=== PATIENT | male | born 1960 | race Caucasian/White ===

== ENCOUNTER 2019-03-25 07:23 | Day surgery (SDC) | payer OTHER, BC ==
[2019-03-25 08:06] VITALS: BMI 25.3
[2019-03-25] MEDS ORDERED: MIDAZOLAM HCL 2 MG/2 ML SINGLE DOSE VIAL ONE (08:52)
[2019-03-25] MEDS ORDERED: ROPIVACAINE HCL 0.5% 30ML VIAL ONE (08:53)
[2019-03-25] MEDS ORDERED: DEXAMETHASONE SOD PHOSPHATE 4 MG/1 ML VIAL ONE ×2 (09:46→11:17)
[2019-03-25] MEDS ORDERED: ONDANSETRON 4 MG/2 ML VIAL ONE ×2 (09:46→11:17)
[2019-03-25] MEDS ORDERED: PROPOFOL 20 ML ONE ×5 (09:48→10:57)
[2019-03-25] MEDS ORDERED: SUCCINYLCHOLINE CHLORIDE 200 MG/10 ML VIAL ONE (09:51)
[2019-03-25] MEDS ORDERED: LIDOCAINE HCL 2% JELLY (5 ML/TUBE) ONE (10:04)
--- NOTE | 2019-03-25 11:43 | OP ---
Operative Note - Note: Operative Date: 03/25/19 Pre-Operative Diagnosis: right quad tendon rupture Operation: right quad tendon repair Implants: qfix x2, 1 discarded Post-Operative Diagnosis: Same as Pre-op Surgeon: Dionisio Mills Conventions Reservationist: Sergio Dunlap Anesthesiologist/FINANCIAL SERVICES REPRESENTATIVE: Sergio Fuentes Anesthesia: Fractional Operative Report Dictated: Yes
[2019-03-25] MEDS ORDERED: PROMETHAZINE HCL 25 MG/1 ML VIAL IVPUSH PRN (11:46)
[2019-03-25] MEDS ORDERED: ONDANSETRON 4 MG/2 ML VIAL IVPUSH PRN (11:46)
[2019-03-25] MEDS ORDERED: ACETAMINOPHEN 325 MG TABLET (FP) PO SCH (12:00)
[2019-03-25 12:17] VITALS: PULSE 80; TEMP 97.6
[2019-03-25 13:23] VITALS: BP 136/96
--- NOTE | 2019-03-25 15:12 | OP ---
DATE OF OPERATION: 03/25/2019 PREOPERATIVE DIAGNOSIS: Right quadriceps tendon rupture. POSTOPERATIVE DIAGNOSIS: Right quadriceps tendon rupture. PROCEDURE: Right quadriceps tendon repair. SURGEON: Inocente Agee MD EMB[employer] SYSTEMS SOFTWARE ENGINEER: ELLIOTT Yeboah, whose skillful assistance was necessary for the safe and timely performance of this procedure. Mr. Dunlap was able to provide limb positioning, retraction, assist in the insertion of orthopedic fixation hardware as well as suturing the quadriceps tendon. ANESTHESIA: Regional plus sedation. POSTOPERATIVE CONDITION: Stable. COMPLICATIONS: One removed anchor. IMPLANTS: [employer] Q-FIX anchors x2, one discarded. INDICATIONS: This is a pleasant, 59-year-old gentleman who fell off a low wall unexpectedly, landing on his right leg. He presented with . He was seen in the office, clinically found to have a quadriceps tendon rupture. Treatment options including nonoperative versus operative management were reviewed. Operative management was highly suggested to restore function of the quadriceps mechanism. Operative risks were reviewed including bleeding, infection, neurovascular injury, need for further surgery, postoperative pain and stiffness, re-rupture, long-term quadriceps atrophy. We discussed medical risks such as heart attack, stroke, DVT, PE, and . I discussed the use of perioperative antibiotic and DVT prophylaxis. I reviewed the postoperative rehabilitation protocol. I addressed all the patient's questions and concerns. He voiced understanding and elected to proceed. DESCRIPTION OF PROCEDURE: Patient was brought to the operating room after administration of a regional block in the preoperative holding area. The right lower extremity was then prepped and draped in the usual sterile fashion. A preoperative dose of antibiotics given and the usual timeout procedure was performed. Preoperative examination demonstrated no intact palpable fibers of the quadriceps tendon and a large effusion. Incision was now planned out in the midline over the ruptured tendon. This was then carried down through the skin to subcutaneous tissue. Electrocautery was used to maintain hemostasis. After spreading, the hematoma was encountered and evacuated. The quadriceps tendon had a very small superficial layer intact. However, the body of the tendon was found significantly retracted proximally. There were tears extending into the vastus lateralis as well as slightly into the medial retinaculum. The for the most part was intact. At this point, the remaining tissue on the patellar attachment was debrided sharply using 15 blade. The bone appeared sclerotic at the superior pole of the patella. Therefore, a high-speed lucho was used to debride the superficial layer of bone, and also, multiple drill passes were made to encourage a healing environment. Medial and lateral drill holes were placed for Q-FIX anchors. These were done while maintaining palpation of the articular surface of the patella to avoid penetration. As the more-medial anchor was deployed, there was felt to be a bulge in the articular surface, and so, therefore, deployment was stopped. The sutures were removed from the anchor, and then, a drill was passed down to remove the remaining portion of the anchor. The bows in the cartilage were now resolved. The drill hole was redirected, and a second Q-FIX anchor was inserted medially, obtaining good purchase and without any further disturbance of the articular surface. The anchors were tested, and good purchase was achieved. Attention was now turned to the quadriceps tendon. Utilizing free needle, the limbs were then passed in whipstitch fashion. Utilizing a wilberto-type technique, the sutures were sequentially tightened and then tied, securing the quadriceps firmly down onto the superior articular surface of the patella. The tear into the vastus lateralis was loosely approximated utilizing 0 Vicryl suture to avoid undue necrosis of the lateral musculature. The medial retinaculum was repaired using 0 Vicryl as well. It should be noted that prior to the retinacular repair, the knee was copiously irrigated. The subcutaneous tissue was approximated using 2-0 Vicryl. The skin was closed using 3-0 nylon running suture. Sterile dressings were placed. Patient was transferred to recovery room in stable condition after being placed into a knee brace locked in extension. INOCENTE AGEE M.D. [id number]
== END 2019-03-25 13:10 | disposition home or self-care (01) ==
LOC: FASU 07:23
PROVIDERS: ATTEND Orthopaedic Surgery Sports Medicine
PROC: 0LQL0ZZ Repair Right Upper Leg Tendon, Open Approach (ICD-10-PCS; principal; 2019-03-25 09:58)
DX: S76.111A Strain of right quadriceps muscle, fascia and tendon, initial encounter (principal); X58.XXXA Exposure to other specified factors, initial encounter; Y93.89 Activity, other specified; Y92.89 Other specified places as the place of occurrence of the external cause
CPT/HCPCS: 94760